=== PATIENT | female | born 1985 | race Caucasian/White ===

== ENCOUNTER 2016-12-17 19:13 | Emergency (ER) | payer SELFPAY ==
[2016-12-17] MEDS ORDERED: Ketorolac INJ* 60 MG/2 ML VIAL IM ONE (20:59)
[2016-12-17] MEDS ORDERED: Famotidine IV* 10 MG/ML 2 ML (20 mg) IVPB ONE (20:59)
[2016-12-17] MEDS ORDERED: Ondansetron INJ* 2 MG/ML VIAL IV ONE (20:59)
[2016-12-17] MEDS ORDERED: NS 0.9% 1000 ML* 3,000 ML IV ONE (21:15)
[2016-12-17 21:55] LABS: Hematocrit 42 % (35-47); Hemoglobin 14.4 g/dl (12.0-16.0); Mean Corpuscular HGB Conc 34 g/dl (31-36); Mean Corpuscular Hemoglobin 33 pg (27-31); Mean Corpuscular Volume 95 fL (80-97); Mean Platelet Volume 8 um3 (7.4-10.4); Red Blood Count 4.44 10^6/ul (4.0-5.4); Red Cell Distribution Width 15 % (10.5-15); White Blood Count 8.3 10^3/ul (3.5-10.8)
[2016-12-17 22:10] LABS: ALT 11 U/L (7-52); AST 20 U/L (13-39); Albumin 4.2 g/dL (3.2-5.2); Alkaline Phosphatase 46 U/L (34-104); Amylase 49 U/L (29-103); Anion Gap 12 mmol/L (2-11); BUN/Creatinine Ratio 13.3 (8-20); Blood Urea Nitrogen 12 mg/dL (6-24); C Reactive Protein < 1.00 mg/L (< 5.00); CO2 Carbon Dioxide 27 mmol/L (22-32); Calcium 9.2 mg/dL (8.6-10.3); Chloride 102 mmol/L (101-111); Creatine Kinase 85 U/L (10-223); EGFR African American 93.3 (>60); EGFR Non-African American 72.6 (>60); Globulin 2.5 g/dL (2-4); Glucose 81 mg/dL (70-100); Lipase 31 U/L (11.0-82.0); Magnesium 2.1 mg/dL (1.9-2.7); Potassium 3.9 mmol/L (3.5-5.0); Sodium 141 mmol/L (133-145); Total Protein 6.7 g/dL (6.4-8.9)
[2016-12-17 22:46] LABS: Acetaminophen < 15 mcg/mL; Alcohol 159 mg/dL (<10)
--- NOTE | 2016-12-17 22:56 | ED ---
Abdominal Pain/Female - HPI Summary HPI Summary: Patient is a 31yo F alcoholic who presents with N/V and back pain all day with a possibility of a "seizure.". States nausea began last night and has continued through today. She drinks ETOH every night but is unsure how much. She states she will often fall asleep while drinking and awoke yesterday in the bath after possibly several hours. she was drinking ETOH at this time too and is unsure if she suffered a seizure. she had a seizure last year, but was never diagnosed with a seizure disorder. She was given seizure medications but has not taken them. PMHx includes a similiar episode of N/V. She states the hospital (in [facility]) ran multiple tests but could not find anything abnormal on CT scan. lab work at that time showed "my kidneys and liver were shutting down." She states this is likely d/t alcohol. Denies any alcohol use today. Denies drug use. Heavy smoker at [facility]. - History of Current Complaint Chief Complaint: EDNauseaVomitDiarrh Stated Complaint: VOMITING/ABD PAIN/CHEST PAIN/CONFUSION Hx Obtained From: Patient ?: No Onset/Duration: Sudden Onset Timing: Constant Severity Initially: Moderate Severity Currently: Moderate Pain Intensity: 8 Pain Scale Used: 0-10 Numeric Location: Diffuse Radiates: No Character: Cramping Aggravating Factor(s): Nothing Alleviating Factor(s): Nothing Associated Signs and Symptoms: Positive: Back Pain, Nausea, Vomiting - Risk Factors Ectopic Risk Factor: Maternal Age ^ 30 Ovarian Torsion Risk Factor: Negative Allergies/Adverse Reactions: Allergies Allergy/AdvReac Type Severity Reaction Status Date / Time Morphine Allergy Flushing Verified 12/17/16 21:47 Penicillins [PCN] Allergy Unknown Verified 12/17/16 21:45 Reaction Details Sulfa Antibiotics Allergy Unknown Verified 12/17/16 21:46 Reaction Details PMH/Surg Hx/FS Hx/Imm Hx Previously Healthy: Yes Infectious Disease History: No Infectious Disease History: Denies: Traveled Outside the [place] in Last 30 Days - Social History Occupation: Unemployed Lives: Alone Alcohol Use: Daily Alcohol Amount: wine Hx Substance Use: No Substance Use Type: Reports: None Smoking Status (MU): Light Every Day Tobacco Smoker Review of Systems Positive: Fatigue Eyes: Negative Cardiovascular: Negative Respiratory: Negative Positive: Abdominal Pain, Vomiting, Nausea Genitourinary: Negative Positive: Arthralgia, Myalgia - back pain Skin: Negative Positive: Slurred Speech All Other Systems Reviewed And Are Negative: Yes Physical Exam Triage Information Reviewed: Yes Vital Signs On Initial Exam: Initial Vitals Temp Pulse Resp BP Pulse Ox 99.5 F 122 16 124/79 98 12/17/16 19:17 12/17/16 19:17 12/17/16 19:17 12/17/16 19:17 12/17/16 19:17 Vital Signs Reviewed: Yes Appearance: Positive: Ill-Appearing, Thin, Cachectic Skin: Positive: Warm, Skin Color Reflects Adequate Perfusion Head/Face: Positive: Normal Head/Face Inspection Eyes: Positive: Normal, EOMI, Conjunctiva Inflammed Neck: Positive: Supple, Nontender Respiratory/Lung Sounds: Positive: Clear to Auscultation Cardiovascular: Positive: Normal Abdomen Description: Positive: Soft, Other: - diffuse tenderness on palpation. Spleen not palpated. Negative CVA tenderness. Negative Rovsing. No tenderness at [place]Bur[place] point. Bowel Sounds: Positive: Present Musculoskeletal: Positive: Pain @ - right and left flanks Neurological: Positive: Disoriented - lethargic Psychiatric: Positive: Normal Diagnostics - Vital Signs Vital Signs Temp Pulse Resp BP Pulse Ox 12/17/16 19:17 99.5 F 122 16 124/79 98 - Laboratory Lab Results: Lab Results 12/17/16 12/17/16 12/17/16 Range/Units 21:45 21:45 21:45 WBC 8.3 (3.5-10.8) 10^3/ul RBC 4.44 (4.0-5.4) 10^6/ul Hgb 14.4 (12.0-16.0) g/dl Hct 42 (35-47) % MCV 95 (80-97) fL MCH 33 H (27-31) pg MCHC 34 (31-36) g/dl RDW 15 (10.5-15) % Plt Count 248 (150-450) 10^3/ul MPV 8 (7.4-10.4) um3 Neut % (Auto) 54.1 (38-83) % Lymph % (Auto) 34.3 (25-47) % Kings % (Auto) 9.2 H (1-9) % Eos % (Auto) 1.4 (0-6) % Baso % (Auto) 1.0 (0-2) % Absolute Neuts (auto) 4.5 (1.5-7.7) 10^3/ul Absolute Lymphs (auto) 2.9 (1.0-4.8) 10^3/ul Absolute Monos (auto) 0.8 (0-0.8) 10^3/ul Absolute Eos (auto) 0.1 (0-0.6) 10^3/ul Absolute Basos (auto) 0.1 (0-0.2) 10^3/ul Absolute Nucleated RBC 0.01 10^3/ul Nucleated RBC % 0.1 D-Dimer, Quantitative (Less Than 230) ng/mL Sodium 141 (133-145) mmol/L Potassium 3.9 (3.5-5.0) mmol/L Chloride 102 (101-111) mmol/L Carbon Dioxide 27 (22-32) mmol/L Anion Gap 12 H (2-11) mmol/L BUN 12 (6-24) mg/dL Creatinine 0.90 (0.51-0.95) mg/dL Est GFR ( Amer) 93.3 (>60) Est GFR (Non-Af Amer) 72.6 (>60) BUN/Creatinine Ratio 13.3 (8-20) Glucose 81 (70-100) mg/dL Lactic Acid 2.4 H* (0.5-2.0) mmol/L Calcium 9.2 (8.6-10.3) mg/dL Magnesium 2.1 (1.9-2.7) mg/dL Total Bilirubin 0.70 (0.2-1.0) mg/dL AST 20 (13-39) U/L ALT 11 (7-52) U/L Alkaline Phosphatase 46 (34-104) U/L Total Creatine Kinase 85 (10-223) U/L C-Reactive Protein < 1.00 (< 5.00) mg/L B-Natriuretic Peptide ( - 100) pg/mL Total Protein 6.7 (6.4-8.9) g/dL Albumin 4.2 (3.2-5.2) g/dL Globulin 2.5 (2-4) g/dL Albumin/Globulin Ratio 1.7 (1-3) Amylase 49 (29-103) U/L Lipase 31 (11.0-82.0) U/L Beta HCG, Quant < 0.60 mIU/mL Acetaminophen < 15 mcg/mL Serum Alcohol 159 H (<10) mg/dL 12/17/16 12/17/16 Range/Units 21:45 21:45 WBC (3.5-10.8) 10^3/ul RBC (4.0-5.4) 10^6/ul Hgb (12.0-16.0) g/dl Hct (35-47) % MCV (80-97) fL MCH (27-31) pg MCHC (31-36) g/dl RDW (10.5-15) % Plt Count (150-450) 10^3/ul MPV (7.4-10.4) um3 Neut % (Auto) (38-83) % Lymph % (Auto) (25-47) % Kings % (Auto) (1-9) % Eos % (Auto) (0-6) % Baso % (Auto) (0-2) % Absolute Neuts (auto) (1.5-7.7) 10^3/ul Absolute Lymphs (auto) (1.0-4.8) 10^3/ul Absolute Monos (auto) (0-0.8) 10^3/ul Absolute Eos (auto) (0-0.6) 10^3/ul Absolute Basos (auto) (0-0.2) 10^3/ul Absolute Nucleated RBC 10^3/ul Nucleated RBC % D-Dimer, Quantitative < 200 (Less Than 230) ng/mL Sodium (133-145) mmol/L Potassium (3.5-5.0) mmol/L Chloride (101-111) mmol/L Carbon Dioxide (22-32) mmol/L Anion Gap (2-11) mmol/L BUN (6-24) mg/dL Creatinine (0.51-0.95) mg/dL Est GFR ( Amer) (>60) Est GFR (Non-Af Amer) (>60) BUN/Creatinine Ratio (8-20) Glucose (70-100) mg/dL Lactic Acid (0.5-2.0) mmol/L Calcium (8.6-10.3) mg/dL Magnesium (1.9-2.7) mg/dL Total Bilirubin (0.2-1.0) mg/dL AST (13-39) U/L ALT (7-52) U/L Alkaline Phosphatase (34-104) U/L Total Creatine Kinase (10-223) U/L C-Reactive Protein (< 5.00) mg/L B-Natriuretic Peptide 11 ( - 100) pg/mL Total Protein (6.4-8.9) g/dL Albumin (3.2-5.2) g/dL Globulin (2-4) g/dL Albumin/Globulin Ratio (1-3) Amylase (29-103) U/L Lipase (11.0-82.0) U/L Beta HCG, Quant mIU/mL Acetaminophen mcg/mL Serum Alcohol (<10) mg/dL Result Diagrams: 12/17/16 21:45 12/17/16 21:45 Lab Statement: Any lab studies that have been ordered have been reviewed, and results considered in the medical decision making process. Abdominal Pain Fem Course/Dx - Course Course Of Treatment: concern for pancreatitis and kidney pathology d/t symptoms. CT shows no acute findings. serum alcohol 159. labs WNL. patient feeling better after 3 bags fluids, zofran and toradol. lactic 2.2. will discharge home with return precautions. patient agrees to follow up as outpatient. - Diagnoses Differential Diagnosis: Positive: Peptic Ulcer Disease, Other - alcohol withdrawal, alcohol intoxication Provider Diagnoses: Alcohol intoxication Discharge - Discharge Plan Condition: Stable Disposition: HOME Patient Education Materials: Alcohol Withdrawal (ED), Abdominal Pain (ED) Additional Instructions: Zofran as needed for nausea. Naproxen 500mg twice daily as needed for pain. Follow up with primary
[2016-12-18] MEDS ORDERED: NS 0.9% 1000 ML* 3,000 ML IV ONE (00:39)
[2016-12-18] MEDS ORDERED: Morphine INJ* 2 MG/ML 1 ML CARPUJECT IV ONE (00:42)
[2016-12-18 00:57] LABS: Urine Bilirubin Negative (Negative); Urine Glucose Negative (Negative); Urine Nitrite Negative (Negative)
[2016-12-18] MEDS ORDERED: Ketorolac INJ* 30 MG/ML 1 ML VIAL IV PUSH ONE (00:58)
[2016-12-18] MEDS ORDERED: Ketorolac INJ* 30 MG/ML 1 ML VIAL ONE (00:59)
[2016-12-18 01:06] VITALS: BP 111/66
[2016-12-18 01:13] LABS: Salicylate < 2.50 mg/dL (<30)
[2016-12-18] MEDS ORDERED: Ondansetron ODT TAB* 4 MG PO ONE (01:37)
[2016-12-18] MEDS ORDERED: Naproxen TAB* 250 MG PO ONE (01:38)
--- NOTE | 2016-12-18 07:35 | RAD ---
INDICATION: Costovertebral pain, not urinating for one day. COMPARISON: There are no prior studies available for comparison. TECHNIQUE: A CT scan of the abdomen and pelvis was performed without intravenous or oral contrast. Contiguous axial sections were obtained from the lung bases through the symphysis pubis. Images were reconstructed in the coronal and sagittal planes. FINDINGS: The lung bases are clear. No pleural effusion is present. The liver and spleen are within normal limits in size without significant focal abnormality on this noncontrast study. The very top of the liver is cut off on the study. No calcified gallstones are seen. The pancreas appears to be within normal limits in size. The adrenal glands and kidneys are normal in size. No renal calculi or hydronephrosis is seen. No ureteral or bladder calculi are seen. The aorta is normal in caliber without significant calcific plaque. No significant enlarged retroperitoneal lymph nodes are seen. The stomach, small and large bowel appear nondistended. The appendix is within normal limits. There is mild descending and sigmoid diverticulosis without evidence for diverticulitis. The uterus is retroverted and normal in size. No free intraperitoneal air or fluid is seen. There is a mild lumbar scoliosis convex toward the left side. No significant focal osseous abnormality is seen. IMPRESSION: NO EVIDENCE FOR ACUTE FINDING OR CAUSE FOR THE PATIENT'S ABDOMINAL PAIN IS SEEN.
== END 2016-12-18 03:05 | disposition home or self-care (01) ==
LOC: ED 19:13
DX: F10.129 Alcohol abuse with intoxication, unspecified (principal); Y90.6 Blood alcohol level of 120-199 mg/100 ml; Z88.5 Allergy status to narcotic agent; Z88.0 Allergy status to penicillin; Z88.2 Allergy status to sulfonamides; Z72.0 Tobacco use
CPT/HCPCS: 36415; 74176; 80053; 80307; 80320; 80329; 81003; 82140; 82150; 82550; 83605; 83690; 83735; 83880; 84702; 85025; 85379; 86140; 96360; 96365; 96372; 96374; 96375; 99284; A9270-GY; G0480; J1885; J2405